=== PATIENT | male | born 1975 | race Hispanic/Latino ===

== ENCOUNTER 2019-07-05 13:10 | Emergency (ER) | payer SELFPAY ==
[2019-07-05] MEDS ORDERED: LIDOCAINE HCL 1% 20 ML VIAL ONE (13:23)
[2019-07-05] MEDS ORDERED: TETANUS/DIPHTHERIA TOXOID [ADULT] 0.5 ML VIAL IM ONE (13:23)
== END 2019-07-05 14:54 | disposition home or self-care (01) ==
LOC: EDH 13:10
DX: S61.217A Laceration without foreign body of left little finger without damage to nail, initial encounter (principal); W20.8XXA Other cause of strike by thrown, projected or falling object, initial encounter; Y93.89 Activity, other specified; Y92.69 Other specified industrial and construction area as the place of occurrence of the external cause; Y99.8 Other external cause status
CPT/HCPCS: 12042; 73140; 90471; 90714

== ENCOUNTER 2020-08-19 19:24 | Emergency (ER) | payer SELFPAY | END 2020-08-19 20:33 | disposition home or self-care (01) | LOC: EDH 19:24 | DX: S61.216A Laceration without foreign body of right little finger without damage to nail, initial encounter (principal); W26.0XXA Contact with knife, initial encounter; Y93.G3 Activity, cooking and baking; Y92.098 Other place in other non-institutional residence as the place of occurrence of the external cause; Y99.8 Other external cause status | CPT/HCPCS: 12042 ==

== ENCOUNTER 2020-08-26 12:03 | Emergency (ER) | payer SELFPAY | END 2020-08-26 12:30 | disposition home or self-care (01) | LOC: EDH 12:03 | DX: S61.217D Laceration without foreign body of left little finger without damage to nail, subsequent encounter (principal); X58.XXXD Exposure to other specified factors, subsequent encounter | CPT/HCPCS: 99281 ==